=== PATIENT | male | born 1945 | race Caucasian/White ===

== ENCOUNTER → 2016-11-05 | Outpatient (CLI) | payer BC ==
[~2016-11-05] MED LIST: IOPAMIDOL (ISOVUE-300) 100 ML BTL IV ONE
== END ==
LOC: FIMAGING 09:19
PROVIDERS: ATTEND Internal Medicine
DX: R31.9 Hematuria, unspecified (principal); N40.1 Benign prostatic hyperplasia with lower urinary tract symptoms; K44.9 Diaphragmatic hernia without obstruction or gangrene
CPT/HCPCS: 74178-PO; Q9967

== ENCOUNTER 2017-07-24 11:02 | Emergency (ER) | payer BC, OTHER ==
[2017-07-24 11:16] VITALS: O2SAT 91
--- NOTE | 2017-07-24 11:19 | EDPHY ---
H & P Smoking Status: Never smoked Time Seen by Provider: 07/24/17 11:12 HPI/ROS: CHIEF COMPLAINT: Right lateral ankle pain HISTORY OF PRESENT ILLNESS: 72-year-old male arrives via private vehicle complaining of acute right lateral ankle pain after he was at [place], slipped and twisted his right foot and ankle. He is able to bear weight albeit with pain but notes progressive swelling to the right lateral ankle. No proximal distal pain or injury. No fall from height. No calcaneus pain. No paresthesia. He packed a sock full of snow prior to leaving [place] PHYSICAL EXAM (Prior to examination, patient consented to physical exam, hands were washed and my usual and customary physical exam procedures followed) 1) GENERAL: Well-developed, well-nourished, alert and oriented. Appears to be in no acute distress. 2) HEAD: Normocephalic 3) HEENT: Pupils equal, round, reactive to light bilaterally. 4) LUNGS: Breathing comfortably. 5) MUSCULOSKELETAL: Soft tissue swelling to the right lateral malleolus. proximal tibia and fibula nontender .5th MT nontender negative Alvarez test, compartments soft 6) SKIN: Intact no tenting 7) VASCULAR: DP,PT pulses and cap refill present and brisk DIFFERENTIAL DIAGNOSIS: in no particular order including but not limited to fracture, sprain, compartment syndrome Procedure: Crutches indications for crutch use discussed with patient. Patient fitted for crutches by ER staff. Observed ambulating with crutches. I think the patient has the capacity to safely use crutches. Usual and customary crutch walking precautions provided Procedure: Splint A Anthony boot splint was applied by ER oil processing technician. After application of the splint I returned and re-examined the patient. The splint was adequately immobilizing the joint and distal to the splint the patient's circulation and sensation were intact. Patient shows no signs of compartment syndrome. Was given orthopedic precautions. (Amaris Wang) Constitutional: Initial Vital Signs Temperature (C) 36.9 C 07/24/17 11:13 Heart Rate 87 07/24/17 11:13 Respiratory Rate 16 07/24/17 11:13 Blood Pressure 146/78 H 07/24/17 11:13 O2 Sat (%) 91 L 07/24/17 11:13 O2 Delivery Mode Room Air Allergies/Adverse Reactions: No Known Allergies Allergy (Verified 10/11/15 15:45) Home Medications: Medication Instructions Recorded Bupropion HCl [Bupropion Xl] 300 mg PO DAILY 10/15/15 Sertraline HCl [Zoloft] 75 mg PO DAILY 10/15/15 MDM/Departure - [facility] Imaging Results: Images reviewed myself (Amaris Wang) ED Course/Re-evaluation: Care of patient under supervision of secondary supervising physician Dr Duncan . Re-evaluation with serial exams. He is neurovascular intact no evidence of compartment syndrome. He will follow up with [facility] orthopedics Dr. Raymond Nguyen. (Amaris Wang) I did not see this patient while he was in the emergency department. However his care was discussed with the PA while the patient was in the department. I agree with treatment plan and management. IM the secondary supervising physician (Thomas Duncan) - Depart Disposition: Home, Routine, Self-Care Clinical Impression: Fracture of right ankle, lateral malleolus Condition: Good Instructions: Ankle Fracture (ED) Additional Instructions: Return to the ER immediately if you experience discoloration, have worsening pain, numbness, tingling, or any other symptoms that concern you. If you received x-rays in the emergency department today, be advised, that ligamentous , tendon, muscular, and other non-bony injury cannot be fully ruled out. Try to keep your affected extremity elevated above the level of your chest, and keep cold packs on the affected area, for the next 48 hours. Referrals: Raymond Nguyen MD [Medical Doctor] - 2-3 days, if not improved
[2017-07-24 12:39] VITALS: BP 120/74; PULSE 82; RESP 91; TEMP 98.6
== END 2017-07-24 12:39 | disposition home or self-care (01) ==
DX: S82.61XA Displaced fracture of lateral malleolus of right fibula, initial encounter for closed fracture (principal); W18.40XA Slipping, tripping and stumbling without falling, unspecified, initial encounter
CPT/HCPCS: L4386

== ENCOUNTER → 2017-08-18 | Outpatient (CLI) | payer OTHER | LOC: BMCIMAGING 09:26 | PROVIDERS: ATTEND Podiatrist Foot & Ankle Surgery | DX: S82.821D Torus fracture of lower end of right fibula, subsequent encounter for fracture with routine healing (principal) ==

== ENCOUNTER → 2017-09-08 | Outpatient (CLI) | payer OTHER | LOC: BMCIMAGING 09:12 | PROVIDERS: ATTEND Podiatrist Foot & Ankle Surgery | DX: S82.821D Torus fracture of lower end of right fibula, subsequent encounter for fracture with routine healing (principal) ==

== ENCOUNTER → 2017-09-22 | Outpatient (CLI) | payer OTHER | LOC: BMCIMAGING 09:07 | PROVIDERS: ATTEND Podiatrist Foot & Ankle Surgery | DX: S82.821D Torus fracture of lower end of right fibula, subsequent encounter for fracture with routine healing (principal) ==